=== PATIENT | female | born 1940 | race Two or more races ===

== ENCOUNTER 2025-04-29 10:18 | Emergency (ER) | payer OTHER ==
[~2025-04-29] VITALS: Ht 157.5 cm; Wt 61.2 kg
[2025-04-29 10:38] VITALS: BP 124/82; O2SAT 97
[2025-04-29] MEDS ORDERED: AMLODIPINE-OLM1 EAC2 (10:54)
[2025-04-29] MEDS ORDERED: AVAPRO75 MG (10:55)
[2025-04-29] MEDS ORDERED: ZOLOFT25 MG (10:55)
[2025-04-29] MEDS ORDERED: ATENOLOL25 MG (10:55)
== END 2025-04-29 16:32 | disposition home or self-care (01) ==
LOC: ER 10:49
DX: S00.93XA Contusion of unspecified part of head, initial encounter (principal); W18.39XA Other fall on same level, initial encounter; Y93.89 Activity, other specified; Y92.018 Other place in single-family (private) house as the place of occurrence of the external cause; Y99.9 Unspecified external cause status; R42 Dizziness and giddiness; I10 Essential (primary) hypertension